=== PATIENT | male | born 1990 | race Caucasian/White ===

== ENCOUNTER 2017-04-09 20:42 | Emergency (ER) | payer MEDICAID, OTHER ==
[~2017-04-09] VITALS: Ht 167.6 cm; Wt 71.5 kg
[~2017-04-09 20:42] MED LIST: CIPR500T4 PO; DICY10CA60 PO
[2017-04-09 20:46] VITALS: Ht 167.6 cm; Wt 71.5 kg
[2017-04-09] MEDS ORDERED: HYDROCODONE/APAP (5/325) TAB PO ONE (23:30)
--- NOTE | 2017-04-09 23:41 | RADRPT ---
PROCEDURE: Left hand series CLINICAL INDICATION: Pain status post trauma TECHNIQUE: AP oblique and lateral views COMPARISON: None available FINDINGS: The appearance of an acute, nondisplaced fracture of the proximal portion of the scaphoid bone are n oted. No radiodense foreign bodies are present. Significant swelling and soft tissue edema is note d of the region of the left wrist. No dislocations are present. IMPRESSION: 1. Acute, closed, nondisplaced proximal scaphoid waist fracture. RPTAT: HDC .Tegan Stokes MD, MD Date Time Electronically viewed and signed by .Tegan Stokes MD, on 04/09/2017 23:41 .C/
--- NOTE | 2017-04-09 23:49 | RADRPT ---
PROCEDURE: XR Wrist. CLINICAL INDICATION: Trauma to the left wrist, with reference marker directed towards the lateral c arpus. TECHNIQUE: AP, lateral and oblique views of the left wrist were performed. COMPARISON: No prior studies are available for comparison. ABNORMAL REPORT: NONDISPLACED FRACTURE THE PROXIMAL LEFT SCAPHOID. PLEASE TAKE APPROPRIATE ACTION. FINDINGS: There is a nondisplaced fracture of the proximal left scaphoid. Otherwise, remaining osseous structures are without evidence of fracture, dislocation, or subluxatio n. The bones appear well mineralized. The joint spaces are well preserved. There is soft tissue swel ling over the dorsum of the left hand. The soft tissues are otherwise unremarkable. IMPRESSION: Nondisplaced fracture of the proximal the left scaphoid. ABNORMAL REPORT: NONDISPLACED FRACTURE THE PROXIMAL LEFT SCAPHOID. PLEASE TAKE APPROPRIATE ACTION. RPTAT: [facility] Physician Caryn Date Time Electronically viewed and signed by Physician Caryn on 04/09/2017 23:49 RS/
--- NOTE | 2017-04-10 | ERD ---
ER Documentation Chief Complaint Date/Time DATE: 04/09/17 TIME: 23:56 Chief Complaint left hand pain, sp ground level fall 2 days ago HPI Patient is a 26-year-old male who has a left hand pain after he had a mechanical fall and landed on outstretched hands 2 days ago. Denies any head injury or KO. Pain is 8 out of 10. No numbness or tingling ROS All systems reviewed and are negative except as per history of present illness. Medications Home Meds Active Scripts Dicyclomine Hcl* (Bentyl*) 10 Mg Capsule, 10 MG PO QID for 5 Days, CAP Prov:CARL,KERON C 12/22/15 Ciprofloxacin Hcl* (Ciprofloxacin Hcl*) 500 Mg Tablet, 500 MG PO BID for 7 Days , TAB Prov:CARL,KERON C 12/22/15 Allergies Allergies: Coded Allergies: No Known Allergy (Unverified , 12/22/15) PMhx/Soc History of Surgery: Yes (Tonsillectomy 2008) Anesthesia Reaction: No Hx Neurological Disorder: No Hx Respiratory Disorders: No Hx Cardiac Disorders: No Hx Psychiatric Problems: No Hx Miscellaneous Medical Probl: No Hx Alcohol Use: Yes Hx Substance Use: Yes (Weeds) Hx Tobacco Use: No Smoking Status: Never smoker FmHx Family History: No diabetes Physical Exam Vitals Vital Signs Date Time Temp Pulse Resp B/P Pulse Ox O2 Delivery O2 Flow Rate FiO2 04/09/17 20:46 99.0 81 20 133/63 100 Physical Exam Const: [] Head: Atraumatic Eyes: Normal Conjunctiva ENT: Normal External Ears, Nose and Mouth. Neck: Full range of motion..~ No meningismus. Resp: Clear to auscultation bilaterally Cardio: Regular rate and rhythm, no murmurs Abd: Soft, non tender, non distended. Normal bowel sounds Skin: No petechiae or rashes Back: No midline or flank tenderness Ext: Left hand: Patient is able to make a fist, capillary refill less than 2 seconds, radial pulse 2+, swelling over the dorsal surface of the hand particularly over the first digit, no bony abnormalities, positive snuffbox tenderness Results 24 hrs Current Medications Medications (Trade) Dose Ordered Sig/Ana Route PRN Reason Start Time Stop Time Status Last Admin Dose Admin Acetaminophen/ Hydrocodone Bitart ([place] (5/325)) 1 tab ONCE ONCE PO 9/1/17 23:30 04/09/17 23:31 DC Procedures/MDM 26-year-old male presents with hand pain after fall. Imaging does show scaphoid fracture. Patient was given [place] for pain control he was placed in a splint and given prescription for pain medication and outpatient referral to orthopedics. Patient counseled regarding my diagnostic impression and care plan. Prior to discharge all questions answered. Pt agrees with treatment plan and understands strict return precautions. Pt is instructed to follow up with primary care provider within 24-48 hours. Precautionary instructions provided including instructions to return to the ER if not improving or for any worsening or changing symptoms or concerns. Departure Diagnosis: Primary Impression: Scaphoid fracture Condition: Stable MARY CHARLES PA-C Apr 10, 2017 00:00
[2017-04-10] MEDS ORDERED: HYDR-906 PO (00:03)
[2017-04-10] MEDS ORDERED: IBUP800T25 PO (00:03)
[2017-04-10 00:35] VITALS: BP 146/81; PULSE 79; RESP 20; TEMP 98.6
== END 2017-04-10 00:39 | disposition home or self-care (01) ==
LOC: FTE 20:42
DX: S62.035A Nondisplaced fracture of proximal third of navicular [scaphoid] bone of left wrist, initial encounter for closed fracture (principal); W18.39XA Other fall on same level, initial encounter; Y92.9 Unspecified place or not applicable
CPT/HCPCS: 29125; 73110; 73130; Z7502; Z7610